=== PATIENT | female | born 1960 | race Caucasian/White ===

== ENCOUNTER 2023-11-11 15:23 | Outpatient (AMB) | payer OTHER, SELFPAY ==
--- NOTE | 2023-11-11 15:28 | AM.OFFWIN_ITS ---
Intake Vital Signs 11/11/23 15:33 Height 5 ft 4 in Weight 180 lb BMI 30.9 BP 180/90 H Blood Pressure Location Lt brachial Position Sitting Pulse 82 Pulse Source Pulse Oximeter Pulse Oximetry (%) 98 Oxygen Delivery Method Room Air Intake Visit Reasons: [employer] BP Refill/ Has meds with her/NO PCP Intake Note: pt is here for BP medication refill Patient Tobacco Use Status: Never used Tobacco Allergies No Known Allergies Allergy (Verified 11/11/23 15:32) Do you need a note to return to daycare/school/sports/work: No HPI HPI Comments History of Present Illness Details 62 y/o female patient who presents to [facility] in clinic asking for medication refills. Pt is originally from [place], and she has just moved to [place] recently. Pt has not establish care with any PCP and needs refills on her HTN medications. [facility] Medical History (Updated 11/11/23 @ 15:34 by Linda Hanley NP) Essential hypertension Social History Patient Tobacco Use Status: Never used Tobacco Review of Systems Const All systems reviewed & are unremarkable except as noted in HPI and below Physical Exam Vital Signs: Last Vital Signs Pulse 82 11/11/23 15:33 BP 180/90 H 11/11/23 15:33 Pulse Ox 98 11/11/23 15:33 Oxygen Delivery Method Room Air 11/11/23 15:33 BMI result Body Mass Index 30.9 Const General: comfortable and no acute distress Nutritional Appearance: obese Orientation/consciousness: patient oriented x3 Resp Effort & Inspection: normal respiratory effort and able to speak in complete sentences Auscultation: clear to auscultation bilaterally, no crackles, no rales, no rhonchi and no wheezes Cardio Rate: regular rate Rhythm: regular rhythm Heart sounds: S1 normal heart sound present and S2 normal heart sound present Neuro General: patient oriented x3 Assessment & Plan Assessment & Plan (1) Essential hypertension: Code(s): I10 - Essential (primary) hypertension Plan: - Lifestyle changes - DASH diet - make appointment with pcp for f/u. Medications: New hydrochlorothiazide 2.5 mg (0.2 x 12.5 mg) PO DAILY 90 caps 1RF I10 - Essential (primary) hypertension lisinopril 40 mg PO DAILY 90 tabs 1RF I10 - Essential (primary) hypertension Coding Level of Care Code New Pt Level 3 (13071) Diagnoses Essential hypertension I10 Time Spent (min) 15
[2023-11-11 15:33] VITALS: BP 180/90; PULSE 82; O2SAT 98; BMI 30.9
== END 2023-11-11 16:17 | disposition home or self-care (01) ==
PROVIDERS: Visit Provider Nurse Practitioner Family
DX: I10 Essential (primary) hypertension (principal)
CPT/HCPCS: 99203

== ENCOUNTER 2024-04-03 08:15 | Emergency (ER) | payer MEDICARE, MEDICAID, SELFPAY ==
--- NOTE | ~2024-04-03 | XR_ITS ---
EXAMINATION: THORACIC SPINE, LUMBAR SPINE CLINICAL INFORMATION: Midline spinous pain without injury COMPARISON: None available. TECHNIQUE: Repeat views thoracic spine, 4 view cervical spine FINDINGS: There is a biconvex thoracolumbar scoliosis. Mild degenerative changes are noted at most levels. There are no Fractures or subluxations are seen. Severe degenerative changes are present in the cervical spine from C1 through C7 with disc space narrowing, endplate sclerosis and marginal osteophytes. No prevertebral soft tissue swelling, fractures or subluxations. XR/XR cervical spine 3V IMPRESSION: Biconvex thoracolumbar scoliosis with degenerative changes throughout the spine as described above. Electronically signed by: Amadeo Bajwa MD 04/03/2024 10:58 AM EDT
--- NOTE | ~2024-04-03 | XR_ITS ---
EXAMINATION: THORACIC SPINE, LUMBAR SPINE CLINICAL INFORMATION: Midline spinous pain without injury COMPARISON: None available. TECHNIQUE: Repeat views thoracic spine, 4 view cervical spine FINDINGS: There is a biconvex thoracolumbar scoliosis. Mild degenerative changes are noted at most levels. There are no Fractures or subluxations are seen. Severe degenerative changes are present in the cervical spine from C1 through C7 with disc space narrowing, endplate sclerosis and marginal osteophytes. No prevertebral soft tissue swelling, fractures or subluxations. XR/XR thoracic spine 3V IMPRESSION: Biconvex thoracolumbar scoliosis with degenerative changes throughout the spine as described above. Electronically signed by: Amadeo Bajwa MD 04/03/2024 10:58 AM EDT
[2024-04-03 08:27] VITALS: BP 210/99; PULSE 83; RESP 16; TEMP 36.6; O2SAT 97; BMI 31.0
--- NOTE | 2024-04-03 09:04 | ED_ITS ---
HPI - Back Pain/Injury General Chief Complaint: Back Pain/Injury Stated Complaint: Back pain Time Seen by Provider: 04/03/24 08:28 Source: patient Mode of arrival: ambulatory Limitations: no limitations History of Present Illness ED Provider: MARIAH MORAN PA-C HPI Narrative: 63 year old female with pmhx significant for HTN presents to the ED today for evaluation of neck/ upper back pain x4 days. Admits to waking up with midline neck/thoracic pain 4 days ago and believes she may have slept wrong. Pain is now extending down her left arm. She has not taken any OTC meds for this at home. Reports chronic neck/ shoulder pain due to heavy breasts. Denies injury/ trauma/ fall. Denies hx of IVDU. Denies hx of spinal surgery. Denies numbness/tingling/weakness of the extremities, dysuria, hematuria. Patient is also noted to be hypertensive. She states she recently moved here from [place] and has been unable to fill her prescription for lisinopril and hydrochlorothiazide. She last took these medications approximately 3 weeks ago. She currently denies headache, dizziness, vision changes, chest pain, shortness of breath. Related Data Previous Rx's ?Medication ?Instructions ?Recorded lisinopril 40 mg tablet 40 mg PO DAILY #90 tabs 11/11/23 hydrochlorothiazide 12.5 mg capsule 12.5 mg PO DAILY #90 caps 11/19/23 cyclobenzaprine 5 mg tablet 5 mg PO Q8H #7 tabs 04/03/24 hydrochlorothiazide 12.5 mg tablet 12.5 mg PO DAILY 30 days #30 tabs 04/03/24 lidocaine 5 % topical patch 1 patch topical DAILY #15 ea 04/03/24 (Lidoderm) lisinopril 40 mg tablet 40 mg PO DAILY 30 days #30 tabs 04/03/24 Allergies Allergy/AdvReac Type Severity Reaction Status Date / Time No Known Allergies Allergy Verified 04/03/24 08:28 Review of Systems Review of Systems: Constitutional: No fever, chills, fatigue, night sweats, weight changes ENT/Mouth: No ear pain, hearing loss, nasal congestion, sinus pain, rhinorrhea, sore throat Eyes: No eye pain, swelling, redness, vision changes, discharge Cardio: No chest pain, palpitations, HAINES, orthopnea, peripheral edema Pulm: No SOB, cough, sputum, wheezing, dyspnea, hemoptysis GI: No nausea, vomiting, hematemesis, abdominal pain, diarrhea, constipation, hematochezia, melena : No irregular bleeding, dysuria, frequency, urgency, hesitancy, hematuria, flank pain, urinary flow changes, urinary incontinence or retention MSK: No joint pain, myalgias, +neck pain Skin: No lesions, rashes Neuro: No weakness, numbness, paresthesias, LOC, dizziness, headache Psych: No anxiety/panic, depression, SI/HI, AH/VH All other systems reviewed and are negative. [facility] Past Medical History Attestation statement: The following information was validated with the patient. Source: old records reviewed and nursing notes reviewed Medical History Essential hypertension Social History Social History Patient Tobacco Use Status: Never used Tobacco Advance Directives: No Advance Directives Information Provided: Yes Physical Exam Vital Signs: Vital Signs: Last Vital Signs Temp 98.4 F 04/03/24 11:33 Pulse 72 04/03/24 11:33 Resp 18 04/03/24 11:33 BP 189/82 H 04/03/24 11:33 Pulse Ox 97 04/03/24 11:33 O2 Del Method Room Air 04/03/24 11:33 BMI result Body Mass Index 31.0 Hypertensive to 210/99. Vitals otherwise WNL. Const: General: cooperative, healthy appearing, comfortable, no acute distress, alert, awake and Physically active Orientation/consciousness: patient oriented x3 HEENT: Head: Yes normal to inspection, Yes normocephalic and Yes atraumatic Eyes: General: appearance normal, both eyes and all related structures Pupils: Equal, round and reactive pupils present EOM: EOMs intact bilaterally Neck: Other: + no cervical midline spinous tenderness or step-off deformity. Neck: Yes normal visual inspection, Yes full ROM and Yes no meningeal signs Resp: Effort & Inspection: normal respiratory effort Auscultation: clear to auscultation bilaterally Cardio: Rate: regular rate Rhythm: regular rhythm GI: Inspection: Yes normal to inspection Palpation (GI): Soft to palpation and nontender : General: Yes no CVA tenderness Back/Spine/Pelvis: Other: + noted torticollis to the left with pal pable spasm or the left cervical paraspinal muscles extending over the left trapezius muscle with palpable spasm. midline c spine and t spine tenderness without step off deformity. Back: no CVA tenderness Skin: General skin exam: no rashes or lesions noted Neuro: Other: Strength 5/5 intact throughout.? No saddle anesthesia.? Sensation intact to light touch.? Neurovascular intact distally.? General: patient oriented x3, gait normal and no meningeal signs Cranial nerves: Yes Equal, round and reactive pupils present Gait exam (Neuro): Normal gait present Extrem: General: Yes normal to inspection Course Course Course Narrative: 1108 -- x-ray cervical and thoracic spine showing biconvex thoracolumbar scoliosis with degenerative changes throughout the entire spine. No fracture or subluxation. Patient reports symptom improvement after receiving Valium, flexeril and toradol. Exam consistent with muscle spasm of cervical paraspinal muscles. Her blood pressure has improved to 189/82 after dose of lisinopril. > discussed all workup results with patient. Will send Flexeril and lidocaine patches to pharmacy for her neck pain. > a 30 day prescription for both lisinopril and hydrochlorothiazide will be sent to her pharmacy. I did advise her to follow up with her primary care provider for further refills. Referrals have been provided. Patient has remained stable throughout ED visit today. Discussed worrisome signs and symptoms and when to return to the ED. All questions answered at this time. Patient is agreeable with disposition and stable for discharge. Medications Administered Discontinued Medications Generic Name Dose Route Start Last Admin Trade Name Rekha PRN Reason Stop Dose Admin Cyclobenzaprine HCl 5 mg 04/03/24 11:20 04/03/24 11:26 Cyclobenzaprine Hcl 5 Mg Tablet PO 04/03/24 11:21 5 mg ONCE ONE Administration Diazepam 5 mg 04/03/24 09:02 04/03/24 09:20 Diazepam 5 Mg Tablet PO 04/03/24 09:03 5 mg ONCE ONE Administration Ketorolac Tromethamine 30 mg 04/03/24 11:22 04/03/24 11:26 Ketorolac Tromethamine 30 Mg/Ml Vial IM 04/03/24 11:23 30 mg ONCE ONE Administration Lisinopril 40 mg 04/03/24 09:02 04/03/24 09:20 Lisinopril 40 Mg Tablet PO 04/03/24 09:03 40 mg ONCE ONE Administration Protocol Medical Decision Making Medical Decision Making MDM Narrative: 63 year old female with pmhx significant for HTN presents to the ED today for evaluation of neck/ upper back pain x4 days. Patient hypertensive to 210/99. Asymptomatic. Plan to administer home lisinopril dose and re-evaluate. On exam, patient is sitting in exam bed comfortably. No acute distress. There is noted torticollis to the left with palpable spasm or the left cervical paraspinal muscles extending over the left trapezius muscle with palpable spasm. Midline c spine and t spine tenderness without step off deformity. Ambulating with steady gait. Neurovascularly intact distally. Differential diagnosis includes torticollis, MSK sprain/strain, fracture, subluxation, disc herniation, sciatica. Unlikely cord compression, cauda equina, Guillain-Fleming, epidural abscess. Low suspicion for ACS, arrhythmia. Plan for imaging, pain control and re-evaluation. Differential Diagnosis Differential Diagnoses: The differential diagnosis associated with the presentation includes as above Admission/Observation Not indicated. Independent Interpretation I performed an independent interpretation of an: Plain X-Ray Interpretation: X-ray cervical spine without acute fracture, agree with radiologist's interpretation. X-ray thoracic spine without acute fracture, agree with radiologist's interpretation. Radiology Impression Discussion of test interpretation with radiology: I have reviewed the radiologist's reading. Radiologist Impression: EXAMINATION: CERVICAL SPINE, THORACIC SPINE, LUMBAR SPINE CLINICAL INFORMATION: Midline spinous pain without injury COMPARISON: None available. TECHNIQUE: Repeat views thoracic spine, 4 view cervical spine FINDINGS: There is a biconvex thoracolumbar scoliosis. Mild degenerative changes are noted at most levels. There are no Fractures or subluxations are seen. Severe degenerative changes are present in the cervical spine from C1 through C7 with disc space narrowing, endplate sclerosis and marginal osteophytes. No prevertebral soft tissue swelling, fractures or subluxations. XR/XR cervical spine 3V IMPRESSION: Biconvex thoracolumbar scoliosis with degenerative changes throughout the spine as described above. Electronically signed by: Amadeo Bajwa MD 04/03/2024 10:58 AM EDT External Record Review External record reviewed: Inpatient record Prescription Management I considered prescription management with: Pain Medication Chronic Conditions Patient?s care impacted by: Hypertension Social Determinants Patient?s care significantly limited by Social Determinants of Health including: Other Social Determinant of Health Critical Care Time Critical Care Time Critical Care Time: No Discharge Plan Discharge Clinical Impression: Cervical paraspinal muscle spasm, Asymptomatic hypertensive urgency Patient Disposition: Home, Self-Care Instructions: Hypertensive Crisis (ED), Muscle Spasm (ED) Additional Instructions: You were evaluated in the Emergency Department today for your back pain.? Your evaluation did not show signs of medical conditions requiring emergent intervention at this time. Your xrays do not demonstrate fracture. Avoid bending, lifting, or twisting. Use ice several times per day for 20 minutes at a time for the next 48 hours and then change to heat. We recommend you take 600mg ibuprofen every 6 hours or tylenol 650mg every 6 hours as needed for pain. If needed, you can alternate these medications so that you take one medication every 3 hours. For example, at noon take ibuprofen, then at 3pm take tylenol, then at 6pm take ibuprofen. Flexeril is a muscle relaxer. Take this at night as it makes you drowsy. Do not drive, drink alcohol, or operate machinery while taking it. Lidoderm patches are numbing patches. Apply to painful areas. You were also noted to be hypertensive in ED. Refills of your lisinopril and HCTZ have been sent to the pharmacy. Please follow up with your PCP for further refills. If you do not have one, referrals have been provided to you. You may call them to establish care. They will not call you. Return to the Emergency Department if you experience worsening back pain, difficulty walking, fevers, numbness, tingling, incontinence, or any other concerning symptoms. In the case of an emergency call 911. Prescriptions: New lisinopril 40 mg tablet 40 mg PO DAILY 30 Days Qty: 30 0RF hydrochlorothiazide 12.5 mg tablet 12.5 mg PO DAILY 30 Days Qty: 30 0RF cyclobenzaprine 5 mg tablet 5 mg PO Q8H Qty: 7 0RF lidocaine [Lidoderm] 5 % adhesive patch,medicated 1 patch topical DAILY Qty: 15 0RF Rx Instructions: leave on most painful area for up to 12 hrs No Action hydrochlorothiazide 12.5 mg capsule 12.5 mg PO DAILY Qty: 90 1RF lisinopril 40 mg tablet 40 mg PO DAILY Qty: 90 1RF Referrals: [facility] [place] [facility] [Provider Group] [facility] [Provider Group] Dannielle Dill MD [Primary Care Provider] - Interventions: ED Discharge Assessment Last Done: 04/03/24 11:33 Discharge Date/Time: 04/03/24 11:33 Print Language: Irish
[2024-04-03] MEDS: diazePAM 5 MG TABLET PO (09:20)
[2024-04-03] MEDS: lisinopriL 40 MG TABLET PO (09:20)
[2024-04-03 10:12] VITALS: BP 189/82; PULSE 72; RESP 18; O2SAT 97
[2024-04-03] MEDS: Ketorolac Tromethamine 30 MG/ML VIAL IM (11:26)
[2024-04-03] MEDS: Cyclobenzaprine HCl 5 MG TABLET PO (11:26)
[2024-04-03 11:33] VITALS: BP 189/82; PULSE 72; RESP 18; TEMP 36.9; O2SAT 97
== END 2024-04-03 11:33 | disposition home or self-care (01) ==
PROVIDERS: Emergency Provider Emergency Medicine; PCP Family Medicine
DX: I16.0 Hypertensive urgency (principal); M62.838 Other muscle spasm; M54.50 Low back pain, unspecified; M54.2 Cervicalgia; M54.6 Pain in thoracic spine
CPT/HCPCS: 72040; 72072; 96372; 99284; J1885